=== PATIENT | female | born 1970 | race Caucasian/White ===

== ENCOUNTER 2017-12-07 17:13 | Emergency (ER) | payer MEDICAID | END 2017-12-07 19:11 | disposition home or self-care (01) | LOC: FTE 17:13 | DX: L02.214 Cutaneous abscess of groin (principal) | CPT/HCPCS: 99284; Z7502 ==

== ENCOUNTER 2017-12-09 10:19 | Emergency (ER) | payer MEDICAID ==
[2017-12-09] MEDS: VANCOMYCIN 1 GM (PMX) 250 ML IVPB (11:48)
[2017-12-09 11:53] LABS: ADD MAN DIFF? NO
[2017-12-09 11:56] LABS: BASOPHIL # 0.1 10^3/ul (0.0-0.1); BASOPHILS % 0.5 % (0.0-2.0); EOSINOPHILS # 0.3 10^3/ul (0.0-0.5); EOSINOPHILS % 2.1 % (0.0-7.0); HEMATOCRIT 44.3 % (37.0-47.0); HEMOGLOBIN 14.7 g/dl (12.0-16.0); LYMPHOCYTES # 2.7 10^3/ul (0.8-2.9); LYMPHOCYTES % 20.1 % (15.0-51.0); MEAN CORPUSCULAR HEMOGLOBIN 31.1 pg (29.0-33.0); MEAN CORPUSCULAR HGB CONC 33.2 g/dl (32.0-37.0); MEAN CORPUSCULAR VOLUME 93.9 fl (82.0-101.0); MEAN PLATELET VOLUME 11.8 fl (7.4-10.4); MONOCYTE # 0.6 10^3/ul (0.3-0.9); MONOCYTES % 4.6 % (0.0-11.0); NEUTROPHIL # 9.7 10^3/ul (1.6-7.5); NEUTROPHILS % 72.3 % (39.0-77.0); PLATELET COUNT 223 10^3/UL (140-415); RED BLOOD COUNT 4.72 10^6/ul (4.20-5.40); RED CELL DISTRIBUTION WIDTH 12.4 % (11.5-14.5)
[2017-12-09 11:56] LABS: WHITE BLOOD COUNT 13.4 10^3/ul (4.8-10.8)
[2017-12-09 12:49] LABS: ALANINE AMINOTRANSFERASE 57 IU/L (13-69); ALBUMIN 4.1 g/dl (3.3-4.9); ALBUMIN/GLOBULIN RATIO 1.24; ALKALINE PHOSPHATASE 62 IU/L (42-121); ANION GAP 15 (8-16); ASPARTATE AMINO TRANSFERASE 48 IU/L (15-46); BILIRUBIN,INDIRECT 0.7 mg/dl (0-1.1); BILIRUBIN,TOTAL 0.7 mg/dl (0.2-1.3); BLOOD UREA NITROGEN 13 mg/dl (7-20); CALCIUM 8.5 mg/dl (8.4-10.2); CARBON DIOXIDE 21 mmol/L (21-31); CHLORIDE 110 mmol/L (97-110); CREATININE 0.56 mg/dl (0.44-1.00); GLUCOSE 93 mg/dl (70-220); POTASSIUM 4.7 mmol/L (3.5-5.1); SODIUM 141 mmol/L (135-144); TOTAL PROTEIN 7.4 g/dl (6.1-8.1)
== END 2017-12-09 13:55 | disposition home or self-care (01) ==
LOC: FTE 10:19
DX: L02.211 Cutaneous abscess of abdominal wall (principal); L03.311 Cellulitis of abdominal wall
CPT/HCPCS: 36415; 80053; 85025; 96365; 96366; 99284-25

== ENCOUNTER 2018-01-30 02:06 | Inpatient (IN) | payer MEDICAID ==
[2018-01-30] MEDS: CEFTRIAXONE 1 GM/50 ML (PMX) 50 ML IVPB (02:53)
[2018-01-30] MEDS: ONDANSETRON 4 MG INJ IV (02:53)
[2018-01-30] MEDS: morphine 4 MG/ML VIAL IV (02:53)
[2018-01-30 03:00] LABS: ADD MAN DIFF? NO
[2018-01-30 03:06] LABS: BASOPHIL # 0.1 10^3/ul (0.0-0.1); BASOPHILS % 0.5 % (0.0-2.0); EOSINOPHILS # 0.3 10^3/ul (0.0-0.5); EOSINOPHILS % 2.3 % (0.0-7.0); HEMATOCRIT 44.1 % (37.0-47.0); HEMOGLOBIN 14.8 g/dl (12.0-16.0); LYMPHOCYTES # 1.9 10^3/ul (0.8-2.9); LYMPHOCYTES % 15.1 % (15.0-51.0); MEAN CORPUSCULAR HGB CONC 33.6 g/dl (32.0-37.0); MEAN CORPUSCULAR VOLUME 92.5 fl (82.0-101.0); MONOCYTE # 0.6 10^3/ul (0.3-0.9); MONOCYTES % 4.9 % (0.0-11.0); NEUTROPHIL # 9.7 10^3/ul (1.6-7.5); NEUTROPHILS % 76.6 % (39.0-77.0); PLATELET COUNT 201 10^3/UL (140-415); RED BLOOD COUNT 4.77 10^6/ul (4.20-5.40); RED CELL DISTRIBUTION WIDTH 12.2 % (11.5-14.5)
[2018-01-30 03:06] LABS: WHITE BLOOD COUNT 12.6 10^3/ul (4.8-10.8)
[2018-01-30 03:18] LABS: LACTIC ACID 0.9 mmol/L (0.5-2.0)
[2018-01-30] MEDS: VANCOMYCIN 1 GM (PMX) 250 ML IVPB (03:18)
[2018-01-30 03:24] LABS: PROTIME 13.3 Sec (11.9-14.9)
[2018-01-30 03:26] LABS: PARTIAL THROMBOPLASTIN TIME 32.2 Sec (25.0-35.0)
[2018-01-30] MEDS: KETOROLAC 30 MG INJ IV (04:07)
[2018-01-30] MEDS: SOD CHLORIDE 0.9% 2,000 ML IV (04:07)
[2018-01-30] MEDS: HYDROmorphONE 0.5 MG/0.5 ML SYG IV ×2 (04:55→17:13)
[2018-01-30] MEDS ORDERED: DOCUSATE SODIUM 100 MG CAP PO (05:30)
[2018-01-30] MEDS ORDERED: ACETAMINOPHEN 325 MG TAB PO (05:30)
[2018-01-30] MEDS ORDERED: BISACODYL (EC) 5 MG TAB PO (05:30)
[2018-01-30] MEDS ORDERED: VANCOMYCIN IV PER PHARMACY XX (05:30)
[2018-01-30] MEDS ORDERED: NACL 0.9% 3 ML SYG IV (05:30)
[2018-01-30] MEDS: PIPER-TAZO 3.375 GM IV (PMX) 100 ML IVPB ×4 (06:21→23:18)
[2018-01-30] MEDS: HEPARIN 5,000 UNIT/0.5 ML VIAL SC ×3 (06:24→22:10)
[2018-01-30 06:28] LABS: ALANINE AMINOTRANSFERASE 67 IU/L (13-69); ALBUMIN/GLOBULIN RATIO 1.03; ALKALINE PHOSPHATASE 58 IU/L (42-121); ANION GAP 10 (8-16); ASPARTATE AMINO TRANSFERASE 39 IU/L (15-46); BILIRUBIN,INDIRECT 0.7 mg/dl (0-1.1); BILIRUBIN,TOTAL 0.7 mg/dl (0.2-1.3); BLOOD UREA NITROGEN 10 mg/dl (7-20); CALCIUM 7.5 mg/dl (8.4-10.2); CARBON DIOXIDE 22 mmol/L (21-31); CHLORIDE 110 mmol/L (97-110); CREATININE 0.44 mg/dl (0.44-1.00); GLUCOSE 106 mg/dl (70-220); SODIUM 138 mmol/L (135-144); TOTAL PROTEIN 5.9 g/dl (6.1-8.1)
[2018-01-30 06:30] LABS: CHOL/HDL RATIO 3.8 RATIO; CHOLESTEROL 147 mg/dl (100-200); HDL CHOLESTEROL 38 mg/dl (34-88); LDL CHOLESTEROL,CALCULATED 93 mg/dl; TRIGLYCERIDES 82 mg/dl (0-149)
[2018-01-30 06:30] LABS: MAGNESIUM 1.8 mg/dl (1.7-2.5)
[2018-01-30 06:37] LABS: LACTIC ACID 0.9 mmol/L (0.5-2.0)
[2018-01-30 06:42] LABS: HEMOGLOBIN A1C 5.7 % (0-5.9)
[2018-01-30 09:48] LABS: LACTIC ACID 0.8 mmol/L (0.5-2.0)
[2018-01-30] MEDS: VANCOMYCIN 1.5 GM in SOD CHLORIDE 0.9% 250 ML IVPB (12:52)
[2018-01-30] MEDS: FLUOCINONIDE 0.05% 15 GM CR TOP (22:11)
[2018-01-31] MEDS: VANCOMYCIN 1.5 GM in SOD CHLORIDE 0.9% 250 ML IVPB ×2 (01:20→14:05)
[2018-01-31] MEDS: PIPER-TAZO 3.375 GM IV (PMX) 100 ML IVPB ×2 (05:21→12:05)
[2018-01-31] MEDS: HEPARIN 5,000 UNIT/0.5 ML VIAL SC (05:27)
[2018-01-31 05:47] LABS: ADD MAN DIFF? NO
[2018-01-31 05:56] LABS: WHITE BLOOD COUNT 9.2 10^3/ul (4.8-10.8)
[2018-01-31 05:56] LABS: BASOPHIL # 0.1 10^3/ul (0.0-0.1); BASOPHILS % 0.5 % (0.0-2.0); EOSINOPHILS # 0.2 10^3/ul (0.0-0.5); EOSINOPHILS % 2.1 % (0.0-7.0); HEMATOCRIT 38.6 % (37.0-47.0); HEMOGLOBIN 12.6 g/dl (12.0-16.0); LYMPHOCYTES # 1.8 10^3/ul (0.8-2.9); MEAN CORPUSCULAR HEMOGLOBIN 30.6 pg (29.0-33.0); MEAN CORPUSCULAR HGB CONC 32.6 g/dl (32.0-37.0); MEAN CORPUSCULAR VOLUME 93.7 fl (82.0-101.0); MONOCYTE # 0.4 10^3/ul (0.3-0.9); MONOCYTES % 4.6 % (0.0-11.0); NEUTROPHIL # 6.7 10^3/ul (1.6-7.5); NEUTROPHILS % 72.4 % (39.0-77.0); PLATELET COUNT 182 10^3/UL (140-415); RED BLOOD COUNT 4.12 10^6/ul (4.20-5.40); RED CELL DISTRIBUTION WIDTH 12.5 % (11.5-14.5)
[2018-01-31 06:23] LABS: ANION GAP 11 (8-16); BLOOD UREA NITROGEN 9 mg/dl (7-20); CALCIUM 7.7 mg/dl (8.4-10.2); CARBON DIOXIDE 24 mmol/L (21-31); CHLORIDE 108 mmol/L (97-110); CREATININE 0.55 mg/dl (0.44-1.00); GLUCOSE 88 mg/dl (70-220); POTASSIUM 4.3 mmol/L (3.5-5.1); SODIUM 139 mmol/L (135-144)
[2018-01-31 08:10] LABS: HEMOGLOBIN A1C 5.7 % (0-5.9)
[2018-01-31] MEDS: FLUOCINONIDE 0.05% 15 GM CR TOP ×2 (11:20→21:45)
[2018-01-31] MEDS: SODIUM HYPOCHLORITE (1/40) 1 APPLIC BTL IRR (11:29)
[2018-01-31] MEDS: HYDROmorphONE 0.5 MG/0.5 ML SYG IV (11:37)
[2018-01-31] MEDS: ONDANSETRON 4 MG INJ IV (14:28)
[2018-01-31] MEDS: DOCUSATE SODIUM 100 MG CAP PO ×2 (17:55→23:00)
[2018-01-31] MEDS: LEVOFLOXACIN 500MG/D5W (PMX) 100 ML IVPB (17:56)
[2018-02-01 01:46] LABS: VANCOMYCIN,TROUGH 9.5 ug/ml (10.0-20.0)
[2018-02-01] MEDS: VANCOMYCIN 1.5 GM in SOD CHLORIDE 0.9% 250 ML IVPB (02:09)
[2018-02-01 05:12] LABS: ADD MAN DIFF? NO
[2018-02-01 05:17] LABS: BASOPHILS % 0.6 % (0.0-2.0); EOSINOPHILS # 0.2 10^3/ul (0.0-0.5); EOSINOPHILS % 3.2 % (0.0-7.0); HEMATOCRIT 38.1 % (37.0-47.0); HEMOGLOBIN 12.5 g/dl (12.0-16.0); LYMPHOCYTES # 1.6 10^3/ul (0.8-2.9); LYMPHOCYTES % 24.7 % (15.0-51.0); MEAN CORPUSCULAR HEMOGLOBIN 30.4 pg (29.0-33.0); MEAN CORPUSCULAR HGB CONC 32.8 g/dl (32.0-37.0); MEAN CORPUSCULAR VOLUME 92.7 fl (82.0-101.0); MEAN PLATELET VOLUME 11.3 fl (7.4-10.4); MONOCYTE # 0.5 10^3/ul (0.3-0.9); MONOCYTES % 7.1 % (0.0-11.0); NEUTROPHIL # 4.1 10^3/ul (1.6-7.5); NEUTROPHILS % 63.5 % (39.0-77.0); PLATELET COUNT 168 10^3/UL (140-415); RED BLOOD COUNT 4.11 10^6/ul (4.20-5.40); RED CELL DISTRIBUTION WIDTH 12.5 % (11.5-14.5)
[2018-02-01 05:17] LABS: WHITE BLOOD COUNT 6.5 10^3/ul (4.8-10.8)
[2018-02-01 05:46] LABS: ANION GAP 10 (8-16); BLOOD UREA NITROGEN 9 mg/dl (7-20); CALCIUM 8.4 mg/dl (8.4-10.2); CARBON DIOXIDE 25 mmol/L (21-31); CHLORIDE 109 mmol/L (97-110); GLUCOSE 107 mg/dl (70-220); SODIUM 140 mmol/L (135-144)
[2018-02-01] MEDS: ENOXAPARIN 40 MG/0.4 ML SYG SC (08:14)
[2018-02-01] MEDS: DOCUSATE SODIUM 100 MG CAP PO ×2 (09:00→20:49)
[2018-02-01] MEDS: SODIUM HYPOCHLORITE (1/40) 1 APPLIC BTL IRR (09:00)
[2018-02-01] MEDS: FLUOCINONIDE 0.05% 15 GM CR TOP ×2 (09:00→20:49)
[2018-02-01] MEDS ORDERED: ROPIVACAINE 0.5 % 30 ML VIAL (10:10)
[2018-02-01] MEDS ORDERED: MIDAZOLAM 1 MG/ML 2 ML INJ (10:10)
[2018-02-01] MEDS ORDERED: PROPOFOL 20 ML (10:10)
[2018-02-01] MEDS ORDERED: FENTAnyl 50 MCG/ML VIAL IV ×3 (11:00)
[2018-02-01] MEDS ORDERED: HYDROmorphONE 1 MG/5 ML IV SYRINGE IV ×3 (11:00)
[2018-02-01] MEDS ORDERED: MEPERIDINE 25 MG INJ IV (11:00)
[2018-02-01] MEDS ORDERED: EPHEDrine SULFATE 50 MG/5 ML SYG IV (11:00)
[2018-02-01] MEDS ORDERED: METOCLOPRAMIDE 10 MG INJ IV (11:00)
[2018-02-01] MEDS ORDERED: DIPHENHYDRAMINE 50 MG INJ IV (11:00)
[2018-02-01] MEDS ORDERED: ONDANSETRON 4 MG INJ IV (11:00)
[2018-02-01] MEDS ORDERED: OXYCODONE/ACETAMINOPHEN (5/325) TAB PO ×2 (11:00)
[2018-02-01] MEDS ORDERED: METOCLOPRAMIDE 10 MG INJ (11:12)
[2018-02-01] MEDS ORDERED: ONDANSETRON 4 MG INJ (11:12)
[2018-02-01] MEDS ORDERED: DEXAMETHASONE 4 MG/ML 1 ML INJ (11:12)
[2018-02-01] MEDS: VANCOMYCIN 1.75 GM in SOD CHLORIDE 0.9% 500 ML IVPB (13:09)
[2018-02-01] MEDS: TRIMETHOPRIM/SULFAMETHOX (DS) TAB PO ×2 (14:40→20:49)
[2018-02-01] MEDS: LEVOFLOXACIN 500MG/D5W (PMX) 100 ML IVPB (17:45)
[2018-02-02] MEDS: VANCOMYCIN 1.75 GM in SOD CHLORIDE 0.9% 500 ML IVPB ×2 (02:24→13:40)
[2018-02-02 05:31] LABS: ADD MAN DIFF? NO
[2018-02-02 05:34] LABS: BASOPHILS % 0.2 % (0.0-2.0); EOSINOPHILS % 0.2 % (0.0-7.0); HEMATOCRIT 37.1 % (37.0-47.0); HEMOGLOBIN 12.2 g/dl (12.0-16.0); LYMPHOCYTES # 1.6 10^3/ul (0.8-2.9); LYMPHOCYTES % 16.8 % (15.0-51.0); MEAN CORPUSCULAR HEMOGLOBIN 30.7 pg (29.0-33.0); MEAN CORPUSCULAR HGB CONC 32.9 g/dl (32.0-37.0); MEAN CORPUSCULAR VOLUME 93.2 fl (82.0-101.0); MEAN PLATELET VOLUME 11.3 fl (7.4-10.4); MONOCYTE # 0.5 10^3/ul (0.3-0.9); MONOCYTES % 5.8 % (0.0-11.0); NEUTROPHILS % 75.7 % (39.0-77.0); PLATELET COUNT 167 10^3/UL (140-415); RED BLOOD COUNT 3.98 10^6/ul (4.20-5.40); RED CELL DISTRIBUTION WIDTH 12.2 % (11.5-14.5)
[2018-02-02 05:34] LABS: WHITE BLOOD COUNT 9.3 10^3/ul (4.8-10.8)
[2018-02-02 06:06] LABS: ANION GAP 9 (8-16); BLOOD UREA NITROGEN 13 mg/dl (7-20); CALCIUM 8.5 mg/dl (8.4-10.2); CARBON DIOXIDE 27 mmol/L (21-31); CHLORIDE 108 mmol/L (97-110); GLUCOSE 121 mg/dl (70-220); POTASSIUM 4.2 mmol/L (3.5-5.1); SODIUM 140 mmol/L (135-144)
[2018-02-02] MEDS: ENOXAPARIN 40 MG/0.4 ML SYG SC (09:19)
[2018-02-02] MEDS: SODIUM HYPOCHLORITE (1/40) 1 APPLIC BTL IRR (09:20)
[2018-02-02] MEDS: TRIMETHOPRIM/SULFAMETHOX (DS) TAB PO ×2 (09:20→22:18)
[2018-02-02] MEDS: DOCUSATE SODIUM 100 MG CAP PO ×2 (09:20→22:18)
[2018-02-02] MEDS: FLUOCINONIDE 0.05% 15 GM CR TOP ×2 (09:20→22:19)
[2018-02-02] MEDS: LEVOFLOXACIN 500MG/D5W (PMX) 100 ML IVPB (17:43)
[2018-02-03] MEDS: VANCOMYCIN 1.75 GM in SOD CHLORIDE 0.9% 500 ML IVPB (02:16)
[2018-02-03 05:06] LABS: ADD MAN DIFF? NO
[2018-02-03 05:17] LABS: BASOPHIL # 0.1 10^3/ul (0.0-0.1); BASOPHILS % 0.9 % (0.0-2.0); EOSINOPHILS # 0.3 10^3/ul (0.0-0.5); EOSINOPHILS % 3.7 % (0.0-7.0); HEMATOCRIT 37.3 % (37.0-47.0); HEMOGLOBIN 12.2 g/dl (12.0-16.0); LYMPHOCYTES # 2.1 10^3/ul (0.8-2.9); LYMPHOCYTES % 30.2 % (15.0-51.0); MEAN CORPUSCULAR HEMOGLOBIN 30.7 pg (29.0-33.0); MEAN CORPUSCULAR HGB CONC 32.7 g/dl (32.0-37.0); MEAN CORPUSCULAR VOLUME 93.7 fl (82.0-101.0); MEAN PLATELET VOLUME 11.1 fl (7.4-10.4); MONOCYTE # 0.4 10^3/ul (0.3-0.9); MONOCYTES % 6.2 % (0.0-11.0); NEUTROPHILS % 57.1 % (39.0-77.0); PLATELET COUNT 167 10^3/UL (140-415); RED BLOOD COUNT 3.98 10^6/ul (4.20-5.40); RED CELL DISTRIBUTION WIDTH 12.7 % (11.5-14.5)
[2018-02-03 05:47] LABS: ANION GAP 12 (8-16); BLOOD UREA NITROGEN 10 mg/dl (7-20); CALCIUM 8.3 mg/dl (8.4-10.2); CARBON DIOXIDE 25 mmol/L (21-31); CHLORIDE 107 mmol/L (97-110); CREATININE 0.68 mg/dl (0.44-1.00); GLUCOSE 99 mg/dl (70-220); POTASSIUM 3.9 mmol/L (3.5-5.1); SODIUM 140 mmol/L (135-144)
[2018-02-03] MEDS: SODIUM HYPOCHLORITE (1/40) 1 APPLIC BTL IRR (07:31)
[2018-02-03] MEDS: DOCUSATE SODIUM 100 MG CAP PO ×2 (08:50→20:11)
[2018-02-03] MEDS: FLUOCINONIDE 0.05% 15 GM CR TOP ×2 (08:50→20:11)
[2018-02-03] MEDS: TRIMETHOPRIM/SULFAMETHOX (DS) TAB PO ×2 (08:53→20:11)
[2018-02-03] MEDS: ENOXAPARIN 40 MG/0.4 ML SYG SC (08:56)
[2018-02-04 05:52] LABS: ADD MAN DIFF? NO
[2018-02-04 05:57] LABS: BASOPHIL # 0.1 10^3/ul (0.0-0.1); BASOPHILS % 0.9 % (0.0-2.0); EOSINOPHILS # 0.4 10^3/ul (0.0-0.5); EOSINOPHILS % 4.9 % (0.0-7.0); HEMATOCRIT 42.6 % (37.0-47.0); HEMOGLOBIN 14.3 g/dl (12.0-16.0); LYMPHOCYTES # 2.3 10^3/ul (0.8-2.9); LYMPHOCYTES % 26.7 % (15.0-51.0); MEAN CORPUSCULAR HEMOGLOBIN 31.3 pg (29.0-33.0); MEAN CORPUSCULAR HGB CONC 33.6 g/dl (32.0-37.0); MEAN CORPUSCULAR VOLUME 93.2 fl (82.0-101.0); MEAN PLATELET VOLUME 11.2 fl (7.4-10.4); MONOCYTE # 0.5 10^3/ul (0.3-0.9); MONOCYTES % 5.5 % (0.0-11.0); NEUTROPHIL # 5.1 10^3/ul (1.6-7.5); NEUTROPHILS % 59.9 % (39.0-77.0); PLATELET COUNT 208 10^3/UL (140-415); RED BLOOD COUNT 4.57 10^6/ul (4.20-5.40); RED CELL DISTRIBUTION WIDTH 12.8 % (11.5-14.5)
[2018-02-04 05:57] LABS: WHITE BLOOD COUNT 8.4 10^3/ul (4.8-10.8)
[2018-02-04 06:55] LABS: ANION GAP 13 (8-16); BLOOD UREA NITROGEN 11 mg/dl (7-20); CALCIUM 9.1 mg/dl (8.4-10.2); CARBON DIOXIDE 25 mmol/L (21-31); CHLORIDE 106 mmol/L (97-110); CREATININE 0.75 mg/dl (0.44-1.00); GLUCOSE 86 mg/dl (70-220); POTASSIUM 4.3 mmol/L (3.5-5.1); SODIUM 140 mmol/L (135-144)
[2018-02-04] MEDS: DOCUSATE SODIUM 100 MG CAP PO ×2 (09:00→20:50)
[2018-02-04] MEDS: SODIUM HYPOCHLORITE (1/40) 1 APPLIC BTL IRR (09:00)
[2018-02-04] MEDS: TRIMETHOPRIM/SULFAMETHOX (DS) TAB PO ×2 (09:28→20:49)
[2018-02-04] MEDS: FLUOCINONIDE 0.05% 15 GM CR TOP ×2 (09:32→20:50)
[2018-02-04] MEDS: ENOXAPARIN 40 MG/0.4 ML SYG SC (09:33)
[2018-02-05] MEDS: SODIUM HYPOCHLORITE (1/40) 1 APPLIC BTL IRR (08:38)
[2018-02-05] MEDS: DOCUSATE SODIUM 100 MG CAP PO (08:39)
[2018-02-05] MEDS: TRIMETHOPRIM/SULFAMETHOX (DS) TAB PO (08:39)
[2018-02-05] MEDS: ENOXAPARIN 40 MG/0.4 ML SYG SC (08:41)
[2018-02-05] MEDS: FLUOCINONIDE 0.05% 15 GM CR TOP (08:41)
== END 2018-02-05 12:55 | disposition home or self-care (01) | DRG 571 ==
LOC: E/R 02:06 → MS1 04:09
PROVIDERS: Family Medicine
PROC: 0JBP0ZZ Excision of Left Lower Leg Subcutaneous Tissue and Fascia, Open Approach (ICD-10-PCS; principal; 2018-02-01 10:08)
DX: L02.416 Cutaneous abscess of left lower limb (principal); L97.319 Non-pressure chronic ulcer of right ankle with unspecified severity; Z68.42 Body mass index [BMI] 45.0-49.9, adult; L97.328 Non-pressure chronic ulcer of left ankle with other specified severity; L03.116 Cellulitis of left lower limb; B95.62 Methicillin resistant Staphylococcus aureus infection as the cause of diseases classified elsewhere; E66.01 Morbid (severe) obesity due to excess calories; R73.03 Prediabetes; L20.9 Atopic dermatitis, unspecified
CPT/HCPCS: 36415; 73721; 76536; 80048; 80053; 80061; 80202; 83036; 83605; 83735; 84443; 85025; 85610; 85730; 87040; 87070; 93005; 93971; 96374; 96375; 99285-25

== ENCOUNTER 2018-11-17 22:32 | Emergency (ER) | payer OTHER, MEDICAID ==
[2018-11-18] MEDS: DEXAMETHASONE 10 MG/ML 1 ML INJ IM (00:29)
[2018-11-18] MEDS: traMADol 50 MG TAB PO (00:29)
[2018-11-18] MEDS: CYCLOBENZAPRINE 10 MG TAB PO (00:29)
[2018-11-18] MEDS: KETOROLAC 60 MG INJ IM (00:29)
[2018-11-18] MEDS: HYDROCODONE/APAP (10/325) TAB PO (01:26)
== END 2018-11-18 01:29 | disposition home or self-care (01) ==
LOC: FTE 11-18 01:29
DX: S13.9XXA Sprain of joints and ligaments of unspecified parts of neck, initial encounter (principal); V49.49XA Driver injured in collision with other motor vehicles in traffic accident, initial encounter
CPT/HCPCS: 81025; 96372; 99284-25

== ENCOUNTER → 2018-12-06 | Emergency (ER) | payer OTHER ==
[~2018-12-06] MED LIST: HYDROmorphONE 1 MG/ML SYG IV; ONDANSETRON 4 MG INJ IV; SOD CHLORIDE 0.9% 1,000 ML IV
[2018-12-06] MEDS: ONDANSETRON (ODT) 4 MG TAB ODT (13:21)
[2018-12-06] MEDS: morphine LIQ (10 MG/5 ML) CUP PO (13:21)
[2018-12-06] MEDS: ACETAMINOPHEN 325 MG TAB PO (13:22)
[2018-12-06 13:31] LABS: ADD MAN DIFF? NO; BASOPHIL # 0.1 10^3/ul (0.0-0.1); BASOPHILS % 0.6 % (0.0-2.0); EOSINOPHILS # 0.2 10^3/ul (0.0-0.5); EOSINOPHILS % 2.4 % (0.0-7.0); HEMATOCRIT 46.6 % (37.0-47.0); HEMOGLOBIN 15.8 g/dl (12.0-16.0); LYMPHOCYTES # 2.3 10^3/ul (0.8-2.9); LYMPHOCYTES % 23.3 % (15.0-51.0); MEAN CORPUSCULAR HEMOGLOBIN 31.1 pg (29.0-33.0); MEAN CORPUSCULAR HGB CONC 33.9 g/dl (32.0-37.0); MEAN CORPUSCULAR VOLUME 91.7 fl (82.0-101.0); MEAN PLATELET VOLUME 10.7 fl (7.4-10.4); MONOCYTE # 0.4 10^3/ul (0.3-0.9); MONOCYTES % 4.4 % (0.0-11.0); NEUTROPHIL # 6.7 10^3/ul (1.6-7.5); NEUTROPHILS % 68.8 % (39.0-77.0); PLATELET COUNT 235 10^3/UL (140-415); RED BLOOD COUNT 5.08 10^6/ul (4.20-5.40); RED CELL DISTRIBUTION WIDTH 12.6 % (11.5-14.5)
[2018-12-06 13:31] LABS: WHITE BLOOD COUNT 9.7 10^3/ul (4.8-10.8)
[2018-12-06 13:39] LABS: ADD UMIC YES; UR ASCORBIC ACID NEGATIVE (NEGATIVE); UR BILIRUBIN (Dip) NEGATIVE (NEGATIVE); UR BLOOD (Dip) 1+ mg/dL (NEGATIVE); UR CLARITY SLIGHTLY CLOUDY (CLEAR); UR COLOR YELLOW (YELLOW); UR GLUCOSE (Dip) NEGATIVE (NEGATIVE); UR KETONES (Dip) NEGATIVE (NEGATIVE); UR LEUKOCYTE ESTERASE (Dip) NEGATIVE Leu/ul (NEGATIVE); UR MUCUS FEW /HPF (NONE SEEN); UR NITRITE (Dip) NEGATIVE (NEGATIVE); UR RBC 4 /HPF (0-5); UR SPECIFIC GRAVITY (Dip) 1.024 (1.003-1.030); UR SQUAMOUS EPITHELIAL CELL FEW /HPF (FEW); UR TOTAL PROTEIN (Dip) NEGATIVE (NEGATIVE); UR UROBILINOGEN (Dip) NEGATIVE (NEGATIVE); UR WBC 6 /HPF (0-5)
[2018-12-06 13:55] LABS: ALANINE AMINOTRANSFERASE 92 IU/L (13-69); ALBUMIN 4.3 g/dl (3.3-4.9); ALKALINE PHOSPHATASE 76 IU/L (42-121); ANION GAP 10 (5-13); ASPARTATE AMINO TRANSFERASE 71 IU/L (15-46); BILIRUBIN,INDIRECT 0.9 mg/dl (0-1.1); BILIRUBIN,TOTAL 0.9 mg/dl (0.2-1.3); BLOOD UREA NITROGEN 15 mg/dl (7-20); CALCIUM 9.5 mg/dl (8.4-10.2); CARBON DIOXIDE 26 mmol/L (21-31); CHLORIDE 108 mmol/L (97-110); CREATININE 0.51 mg/dl (0.44-1.00); Estimated GFR > 60 mL/min (>60); GLUCOSE 117 mg/dl (70-220); LIPASE 85 U/L (23-300); POTASSIUM 4.1 mmol/L (3.5-5.1); SODIUM 144 mmol/L (135-144); TOTAL PROTEIN 7.6 g/dl (6.1-8.1)
== END | disposition home or self-care (01) ==
LOC: FTE 11:05
DX: K80.20 Calculus of gallbladder without cholecystitis without obstruction (principal); N20.0 Calculus of kidney
CPT/HCPCS: 36415; 74176; 76705; 80053; 81001; 83690; 84703; 85025; 99284-25